=== PATIENT | male | born 2000 | race Caucasian/White ===

== ENCOUNTER 2023-09-12 20:34 | Emergency (ER) | payer OTHER ==
[~2023-09-12] VITALS: Ht 177.8 cm; Wt 90.0 kg
[2023-09-12] MEDS ORDERED: IBUP-1492 PO (22:34)
[2023-09-12] MEDS ORDERED: METH-659 PO (22:34)
[2023-09-12] MEDS ORDERED: PREG50 PO ×2 (22:37→22:38)
[2023-09-12 23:09] VITALS: BP 132/74; PULSE 65; RESP 15; TEMP 98.3
== END 2023-09-12 23:24 | disposition home or self-care (01) ==
LOC: EMS 20:37
DX: S29.012A Strain of muscle and tendon of back wall of thorax, initial encounter (principal); V89.2XXA Person injured in unspecified motor-vehicle accident, traffic, initial encounter; Y93.89 Activity, other specified; Y92.89 Other specified places as the place of occurrence of the external cause; Y99.8 Other external cause status
CPT/HCPCS: 99283; Z7502